=== PATIENT | female | born 1985 | race Caucasian/White ===

== ENCOUNTER 2021-05-10 15:44 | Outpatient (CLI) | payer OTHER | END 2021-05-10 15:45 | disposition home or self-care (01) | LOC: DTY/OP 15:44 | PROVIDERS: ATTEND Surgery | DX: E66.01 Morbid (severe) obesity due to excess calories (principal) | CPT/HCPCS: 97802 ==

== ENCOUNTER 2021-05-11 15:19 | Outpatient (CLI) | payer OTHER | END 2021-05-11 15:20 | disposition home or self-care (01) | LOC: DTY/OP 15:19 | PROVIDERS: ATTEND Surgery | DX: E66.01 Morbid (severe) obesity due to excess calories (principal) | CPT/HCPCS: 97802 ==

== ENCOUNTER 2021-05-12 11:34 | Outpatient (CLI) | payer OTHER | END 2021-05-12 11:35 | disposition home or self-care (01) | LOC: DTY/OP 11:34 | PROVIDERS: ATTEND Surgery | DX: E66.01 Morbid (severe) obesity due to excess calories (principal); Z68.37 Body mass index [BMI] 37.0-37.9, adult | CPT/HCPCS: 97802 ==

== ENCOUNTER 2021-05-17 15:46 | Outpatient (CLI) | payer OTHER | END 2021-05-17 15:47 | disposition home or self-care (01) | LOC: DTY/OP 15:46 | PROVIDERS: ATTEND Surgery | DX: E66.01 Morbid (severe) obesity due to excess calories (principal) | CPT/HCPCS: 97802 ==

== ENCOUNTER 2021-05-18 15:57 | Outpatient (CLI) | payer OTHER | END 2021-05-18 15:58 | disposition home or self-care (01) | LOC: DTY/OP 15:57 | PROVIDERS: ATTEND Surgery | DX: E66.01 Morbid (severe) obesity due to excess calories (principal); Z68.38 Body mass index [BMI] 38.0-38.9, adult | CPT/HCPCS: 97802 ==

== ENCOUNTER 2021-05-19 11:44 | Outpatient (CLI) | payer OTHER | END 2021-05-19 11:45 | disposition home or self-care (01) | LOC: DTY/OP 11:44 | PROVIDERS: ATTEND Surgery | DX: E66.01 Morbid (severe) obesity due to excess calories (principal); Z68.37 Body mass index [BMI] 37.0-37.9, adult | CPT/HCPCS: 97802 ==

== ENCOUNTER 2021-05-21 09:31 | Outpatient (CLI) | payer OTHER | END 2021-05-21 09:32 | disposition home or self-care (01) | LOC: DTY/OP 09:31 | PROVIDERS: ATTEND Surgery | DX: E66.01 Morbid (severe) obesity due to excess calories (principal) | CPT/HCPCS: 97802 ==

== ENCOUNTER 2021-05-24 11:35 | Outpatient (CLI) | payer OTHER | END 2021-05-24 11:36 | disposition home or self-care (01) | LOC: DTY/OP 11:35 | PROVIDERS: ATTEND Surgery | DX: E66.01 Morbid (severe) obesity due to excess calories (principal) | CPT/HCPCS: 97802 ==

== ENCOUNTER 2021-05-25 10:10 | Outpatient (CLI) | payer OTHER | END 2021-05-25 10:11 | disposition home or self-care (01) | LOC: DTY/OP 10:10 | PROVIDERS: ATTEND Surgery | DX: E66.01 Morbid (severe) obesity due to excess calories (principal) | CPT/HCPCS: 97802 ==

== ENCOUNTER 2021-06-11 12:40 | Outpatient (CLI) | payer OTHER ==
[2021-06-11 14:59] LABS: #Monocytes 0.4 10x3/uL (0.0-1.1); %Basophils 0.6 % (0.0-2.0); %Eosinophils 0.4 % (0.0-6.0); %Lymphocytes 36.5 % (18.0-47.0); %Monocytes 7.2 % (0.0-10.0); %Neutrophils 55.1 % (40.0-75.0); Hemoglobin 13.6 g/dL (12.0-15.5); Mean Corpuscular HGB CONC 34.9 g/dL (32.0-36.0); Mean Corpuscular Hemoglobin 30.7 pg (27.0-33.0); Platelet Count 281 10x3/uL (150-450); RBC Distribution Width 11.6 % (11.5-14.5); Red Blood Cell (RBC) Count 4.43 10x6/uL (3.90-5.03); White Blood Cell (WBC) Count 5.4 10x3/uL (3.5-10.5)
[2021-06-11 15:14] LABS: BHCG - Serum Negative (NEGATIVE); Pregs Control Background? CLEAR/WHITE (CLR/WHITE); Pregs Control Bar Appear? YES (CONTROL BAR)
[2021-06-11 15:20] LABS: ALT (SGPT) 16 U/L (8-55); AST (SGOT) 15 U/L (5-34); Albumin 4.2 g/dL (3.5-5.0); Alkaline Phosphatase 50 U/L (40-110); Anion Gap 12 mmol/L (10-20); BUN (Urea Nitrogen) 16 mg/dL (7.0-18.7); Bilirubin, Total 0.4 mg/dL (0.2-1.2); Calc. Creatinine Clearance 0 mL/min (70-130); Calcium 9.6 mg/dL (7.8-10.44); Carbon Dioxide 27 mmol/L (22-29); Chloride 103 mmol/L (98-107); Glucose 80 mg/dL (70-105); Potassium 4.1 mmol/L (3.5-5.1); Protein, Total 7.2 g/dL (6.0-8.3); Sodium 138 mmol/L (136-145)
[2021-06-11 20:15] LABS: Hemoglobin A1c 4.7 % (4.0-6.0)
[2021-06-12 13:55] LABS: SARS-CoV-2 PCR by NAA Not Detected (NotDetected)
== END 2021-06-11 12:41 | disposition home or self-care (01) ==
LOC: LABBT 12:40
PROVIDERS: ATTEND Surgery
DX: Z01.818 Encounter for other preprocedural examination (principal); Z20.822 Contact with and (suspected) exposure to COVID-19
CPT/HCPCS: 80053; 83036; 84703; 85025; 93005; 93010; U0003; U0005

== ENCOUNTER 2021-06-11 12:45 | Inpatient (IN) | payer OTHER ==
[2021-06-16] MEDS ORDERED: Heparin 5,000 UNITS/ML VIAL ONE (06:27)
[2021-06-16] MEDS ORDERED: ceFAZolin 2 GM/DEX 5% 100 ML BAG ONE (06:27)
[2021-06-16] MEDS ORDERED: Bupivacaine 0.25% 10 ML VIAL ONE ×2 (06:34)
[2021-06-16] MEDS ORDERED: Lidocaine 1% w/Epinephrine 1:100K 20 ML VIAL ONE (06:34)
[2021-06-16] MEDS ORDERED: SUGAMMADEX SODIUM 200 MG/2 ML VIAL ONE (06:49)
[2021-06-16] MEDS ORDERED: Fentanyl 100 MCG/2 ML VIAL ONE ×2 (06:49→09:50)
[2021-06-16] MEDS ORDERED: Midazolam HCl 2 mg/2 ml Vial ONE ×2 (06:49→08:02)
[2021-06-16] MEDS ORDERED: Lidocaine 1% PF 5 ML VIAL ONE (08:06)
[2021-06-16] MEDS ORDERED: ePHEDrine 50 MG/ML VIAL ONE (08:06)
[2021-06-16] MEDS ORDERED: Ondansetron PF 4 MG/2 ML Vial ONE (08:06)
[2021-06-16] MEDS ORDERED: PROPOFOL 200 MG/20 ML VIAL ONE (08:06)
[2021-06-16] MEDS ORDERED: Rocuronium Bromide 10 MG/ML (10ML VIAL) ONE (08:06)
[2021-06-16] MEDS ORDERED: diphenhydrAMINE 50 MG/ML VIAL ONE (08:06)
[2021-06-16] MEDS ORDERED: Glycopyrrolate 0.2 MG/ML 5 ML SYRINGE ONE ×2 (08:06)
[2021-06-16] MEDS ORDERED: Dexamethasone 20 MG/5 ML VIAL ONE (08:06)
[2021-06-16] MEDS ORDERED: Promethazine HCl 25 MG/ML VIAL IVPB PRN (09:11)
[2021-06-16] MEDS ORDERED: Ondansetron HCl/PF 4 MG/2 ML Vial IVP PRN (09:11)
[2021-06-16] MEDS ORDERED: HYDROmorphone 2 MG/ML VIAL SLOW IVP PRN (09:11)
[2021-06-16] MEDS ORDERED: Promethazine HCl 25 MG/ML VIAL IM PRN ×2 (09:11→09:21)
[2021-06-16] MEDS ORDERED: Meperidine HCl/PF 25 MG/ML VIAL SLOW IVP PRN (09:11)
[2021-06-16] MEDS ORDERED: Ondansetron PF 4 MG/2 ML Vial IVP PRN (09:21)
[2021-06-16] MEDS ORDERED: diphenhydrAMINE 50 MG/ML VIAL IVP PRN ×2 (09:21→09:49)
[2021-06-16] MEDS ORDERED: Dextrose 5% in Water 1,000 ML IV PRN (09:21)
[2021-06-16] MEDS ORDERED: Dextrose 50% Abboject 50 ML SYRINGE SLOW IVP PRN (09:21)
[2021-06-16] MEDS ORDERED: hydrALAZINE 20 MG/ML VIAL SLOW IVP PRN (09:21)
[2021-06-16] MEDS ORDERED: D5 1/2 NS w/20 mEq KCL 1,000 ML ONE (09:46)
[2021-06-16] MEDS ORDERED: HYDROmorphone 10 mg/100 ml CADD IVPB PRN (09:49)
[2021-06-16] MEDS ORDERED: diphenhydrAMINE 25 MG CAP PO PRN (09:49)
[2021-06-16] MEDS ORDERED: Zolpidem Tartrate 5 MG TAB PO PRN (09:49)
[2021-06-16] MEDS ORDERED: diphenhydrAMINE 50 MG/ML VIAL IM PRN (09:49)
[2021-06-16] MEDS ORDERED: Naloxone HCl 0.4 mg/ml Vial IV PRN (09:49)
[2021-06-16] MEDS ORDERED: Communication Order-Pharmacy FS SCH (10:00)
[2021-06-16] MEDS ORDERED: Promethazine HCl 25 MG/ML VIAL ONE (10:12)
[2021-06-16] MEDS: Ondansetron PF 4 MG/2 ML Vial IVP PRN ×2 (13:13→23:11)
[2021-06-16] MEDS: D5 1/2 NS w/20 mEq KCL 1,000 ML IV SCH ×2 (17:27→17:31)
[2021-06-16] MEDS: Promethazine HCl 25 MG/ML VIAL IM PRN (17:31)
[2021-06-17] MEDS: D5 1/2 NS w/20 mEq KCL 1,000 ML IV SCH ×3 (02:35→17:58)
[2021-06-17] MEDS: Promethazine HCl 25 MG/ML VIAL IM PRN (03:58)
[2021-06-17 06:31] LABS: #Basophils 0.1 thou/uL (0.0-0.2); #Lymphocytes 1.6 thou/uL (1.20-3.40); #Monocytes 0.8 thou/uL (0.11-0.59); #Neutrophils 8.6 thou/uL (1.40-6.50); %Basophils 0.5 % (0.0-1.0); %Lymphocytes 14.6 % (21.0-51.0); %Monocytes 7.2 % (0.0-10.0); %Neutrophils 77.7 % (42.0-75.0); Hemoglobin 14.8 g/dL (12.0-16.0); Mean Corpuscular HGB CONC 34.2 g/dL (32.0-36.0); Mean Corpuscular Hemoglobin 31.9 pg (27.0-31.0); Mean Corpuscular Volume 93.2 fL (78.0-98.0); Mean Platelet Volume 7.6 fL (7.4-10.4); Platelet Count 238 thou/uL (130-400); Red Blood Cell (RBC) Count 4.65 mill/uL (4.20-5.40)
[2021-06-17 06:53] LABS: Anion Gap 13 mmol/L (10-20); BUN (Urea Nitrogen) 5 mg/dL (7.0-18.7); Calc. Creatinine Clearance 152 mL/min (70-130); Calcium 9.3 mg/dL (7.8-10.44); Carbon Dioxide 22 mmol/L (22-29); Chloride 106 mmol/L (98-107); Glucose 135 mg/dL (70-105); Potassium 4.7 mmol/L (3.5-5.1); Sodium 136 mmol/L (136-145)
[2021-06-17] MEDS ORDERED: Sodium Chloride 0.9% 500 ML IV SCH (08:15)
[2021-06-17] MEDS: Ondansetron PF 4 MG/2 ML Vial IVP PRN (09:02)
[2021-06-17] MEDS: Pantoprazole 40 MG VIAL IVP SCH (09:05)
[2021-06-17] MEDS: Enoxaparin Sodium 40 MG/0.4 ML SYRINGE SC SCH (09:05)
[2021-06-17] MEDS: Ketorolac Tromethamine 30 MG/ML VIAL IVP PRN ×3 (09:05→21:40)
[2021-06-17] MEDS: Acetaminophen W/ Codeine 5 ML UDCUP PO PRN ×3 (10:42→23:07)
[2021-06-17] MEDS: Metoclopramide HCl 10 MG/2 ML VIAL IVP SCH ×2 (15:21→21:40)
[2021-06-17] MEDS ORDERED: Bupropion 150 MG XL TAB PO SCH (17:30)
[2021-06-18] MEDS: D5 1/2 NS w/20 mEq KCL 1,000 ML IV SCH ×2 (02:04→09:53)
[2021-06-18] MEDS: Metoclopramide HCl 10 MG/2 ML VIAL IVP SCH (05:27)
[2021-06-18] MEDS: Ketorolac Tromethamine 30 MG/ML VIAL IVP PRN ×2 (05:27→12:21)
[2021-06-18] MEDS ORDERED: Bupropion 150 MG XL TAB PO SCH (09:00)
[2021-06-18] MEDS: Acetaminophen W/ Codeine 5 ML UDCUP PO PRN (09:36)
[2021-06-18] MEDS: Enoxaparin Sodium 40 MG/0.4 ML SYRINGE SC SCH (09:41)
[2021-06-18] MEDS: Pantoprazole 40 MG VIAL IVP SCH (09:42)
[2021-06-18 11:05] VITALS: BMI 37.7
[2021-06-18 11:47] VITALS: BP 100/70; TEMP 97.7
== END 2021-06-18 13:55 | disposition home or self-care (01) | DRG 621 ==
LOC: SURG A 06-16 06:07 → SJJU 06-16 11:16 → EDSTATUS 06-16 12:45
PROVIDERS: ADMIT Surgery; ATTEND Surgery
PROC: 0DB64Z3 Excision of Stomach, Percutaneous Endoscopic Approach, Vertical (ICD-10-PCS; principal; 2021-06-16)
DX: E66.01 Morbid (severe) obesity due to excess calories (principal); Z88.8 Allergy status to other drugs, medicaments and biological substances; R11.2 Nausea with vomiting, unspecified; T40.605A Adverse effect of unspecified narcotics, initial encounter; F90.9 Attention-deficit hyperactivity disorder, unspecified type; F41.9 Anxiety disorder, unspecified; F32.A Depression, unspecified; R48.0 Dyslexia and alexia; Z90.710 Acquired absence of both cervix and uterus; Z98.51 Tubal ligation status; R13.10 Dysphagia, unspecified
CPT/HCPCS: 36415; 71045; 80048; 85025; 88307; 94760; A4649; C9113; J1100; J1200; J1644; J1650; J1885; J2250; J2405; J2550; J2704; J2765; J3010; J3480; J3490; J7030; S0020

== ENCOUNTER 2021-07-12 17:08 | Day surgery (SDC) | payer OTHER ==
[2021-07-12] MEDS ORDERED: Ondansetron PF 4 MG/2 ML Vial IVP PRN (17:35)
[2021-07-12 17:36] VITALS: BP 107/72; TEMP 98.6
[2021-07-12] MEDS ORDERED: Multivitamins, Adult 10 ML, Thiamine HCl 100 MG in Sodium Chloride 0.9% 1,000 ML IV SCH (17:45)
[2021-07-12] MEDS ORDERED: Sodium Chloride 0.9% 1,000 ML IV SCH (18:45)
== END 2021-07-12 19:40 | disposition home or self-care (01) ==
LOC: ONC/OP 17:08
PROVIDERS: ATTEND Surgery
DX: E86.0 Dehydration (principal); Z88.5 Allergy status to narcotic agent
CPT/HCPCS: 96361; 96365; 96375; J2405; J3411; J7050

== ENCOUNTER 2022-01-26 12:54 | Outpatient (CLI) | payer BC | END 2022-01-26 12:55 | disposition home or self-care (01) | LOC: BICULT 12:54 | DX: N63.0 Unspecified lump in unspecified breast (principal) | CPT/HCPCS: 77066; G0279 ==

== ENCOUNTER 2022-04-27 11:34 | Day surgery (SDC) | payer BC ==
[~2022-04-27 11:34] MED LIST: Multivitamins, Adult 10 ML, Thiamine HCl 100 MG in Sodium Chloride 0.9% 1,000 ML IV SCH; Ondansetron PF 4 MG/2 ML Vial IVP PRN; Sodium Chloride 0.9% 1,000 ML IV SCH
[2022-04-27] MEDS ORDERED: Ondansetron PF 4 MG/2 ML Vial ONE (11:59)
[2022-04-27 12:07] VITALS: BP 125/65; TEMP 98.2
== END 2022-04-27 14:02 | disposition home or self-care (01) ==
LOC: ONC/OP 11:34
PROVIDERS: ATTEND Surgery
DX: E86.0 Dehydration (principal); Z88.5 Allergy status to narcotic agent
CPT/HCPCS: 96365; 96375; J2405; J3411; J7050

== ENCOUNTER 2023-06-19 16:14 | Outpatient (CLI) | payer BC ==
[2023-06-19 17:48] LABS: Hematocrit 39.2 % (34.9-44.5)
== END 2023-06-19 16:15 | disposition home or self-care (01) ==
LOC: LABBT 16:14
PROVIDERS: ATTEND Otolaryngology Plastic Surgery within the Head & Neck
DX: Z01.812 Encounter for preprocedural laboratory examination (principal); J34.2 Deviated nasal septum; J34.3 Hypertrophy of nasal turbinates; J32.0 Chronic maxillary sinusitis; J32.1 Chronic frontal sinusitis; J32.3 Chronic sphenoidal sinusitis
CPT/HCPCS: 85014

== ENCOUNTER 2023-06-21 09:07 | Day surgery (SDC) | payer BC ==
[2023-06-19 12:00] VITALS: BMI 29.0
[2023-06-21] MEDS ORDERED: fentaNYL PF 100 MCG/2 ML SYRINGE ONE ×3 (11:26→13:34)
[2023-06-21] MEDS ORDERED: Lidocaine 1% PF 5 ML VIAL ONE (11:27)
[2023-06-21] MEDS ORDERED: Dexamethasone 4 mg/ml Vial ONE (11:27)
[2023-06-21] MEDS ORDERED: PROPOFOL 40 ML ONE (11:27)
[2023-06-21] MEDS ORDERED: Ondansetron PF 4 MG/2 ML Vial ONE ×2 (11:27→12:33)
[2023-06-21] MEDS ORDERED: Oxymetazoline HCl 0.05% (30 ML BOT) ONE ×2 (11:28→12:00)
[2023-06-21] MEDS ORDERED: EPINEPHrine 1 MG/ML VIAL ONE (11:59)
[2023-06-21] MEDS ORDERED: Rocuronium Bromide 10 MG/ML (10ML VIAL) ONE (12:00)
[2023-06-21] MEDS ORDERED: Lidocaine 1% (PF) 30 ML VIAL ONE (12:00)
[2023-06-21] MEDS ORDERED: Bacitracin Zinc Ointment 30 gm TUBE ONE (12:00)
[2023-06-21] MEDS ORDERED: MINERAL OIL/WHITE PETROLATUM 3.5 GM TUBE ONE (12:31)
[2023-06-21] MEDS ORDERED: Dexamethasone 20 MG/5 ML VIAL ONE (12:37)
[2023-06-21] MEDS ORDERED: SUGAMMADEX SODIUM 200 MG/2 ML VIAL ONE (12:41)
[2023-06-21] MEDS ORDERED: traMADol HCl 50 MG TAB ONE (14:49)
== END 2023-06-21 15:41 | disposition home or self-care (01) ==
LOC: SDC 09:07
PROVIDERS: ATTEND Otolaryngology Plastic Surgery within the Head & Neck
PROC: 09TU4ZZ Resection of Right Ethmoid Sinus, Percutaneous Endoscopic Approach (ICD-10-PCS; principal; 2023-06-21)
PROC: 09TV4ZZ Resection of Left Ethmoid Sinus, Percutaneous Endoscopic Approach (ICD-10-PCS; principal; 2023-06-21)
PROC: 09SM4ZZ Reposition Nasal Septum, Percutaneous Endoscopic Approach (ICD-10-PCS; principal; 2023-06-21)
DX: J34.2 Deviated nasal septum (principal); J34.3 Hypertrophy of nasal turbinates; J01.91 Acute recurrent sinusitis, unspecified; J32.8 Other chronic sinusitis; I10 Essential (primary) hypertension; F32.A Depression, unspecified; F41.9 Anxiety disorder, unspecified; Z79.899 Other long term (current) drug therapy
CPT/HCPCS: J0171; J1100; J2001; J2405; J2704